=== PATIENT | female | born 1945 | race Caucasian/White ===

== ENCOUNTER 2022-03-01 14:12 | Outpatient (CLI) | payer MEDICARE, SELFPAY ==
--- OUTSIDE RECORDS SUMMARY | 2022-02-01 09:17 | XMS_ITS | Continuity of Care Document ---
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 She is hillary re of option for shingles shots and she will probably get that through a pharmac y. Will await labs and address abnormalities and she will add a little extra potassium in her diet with banana or oranges daily. Allergies, Adverse Reactions, Alerts Allergen Type Severity Reaction Last Updated Verified Status Latex Allergy Moderate Hives January 02, Yes Active 2021 NSAIDs Allergy Severe hives January 02, Yes Active 2021 Social History Smoking Status Status Start Date End Date Date of Observat ion Ex-smoker (finding) January 03 11:50am Observation Status Observation Response Date of Response History provided by Patient November 22, 2014 2:0 4pm Where do you live? Own home/apt November 22, 2014 2:0 4pm With whom do you live? 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 Hypertension March 27, 2010 Active Diverticulosis April 17, 2011 Active Hyperlipidemia April 28, 2012 Active Uterine fibroid April 28, 2012 Active Lung nodule Active Spondylolisthesis, lumbar region Active Hearing loss Active Occipital neuralgia of right side Active Ventral hernia Active fifth metatarsal shaft fracture, Active left S/P T&A (status post February 20, 2009 Resolved tonsillectomy and adenoidectomy) s/p Arm Fx ORIF February 20, 2009 Resolved S/P left knee arthroscopy February 20, 2009 Resolved S/P laparoscopy February 20, 2009 Resolved S/P total knee arthroplasty Active S/P right cataract extraction Active Medications Medication Status Dose Units Route Directions Qty Days Start End Ins tructions Date Date Acetaminophe Active 1000 MG PO Three Times n A Day (Acetaminoph en Extra Stren) 500 Mg TAB Atenolol Active 25 MG PO Twice A Day 180 January 02, 2022 10:19am Calcium/Jessica Active 1 EA PO Twice A Day min D Diazepam Active 2.5-5 MG PO Three Times 30 December A Day as , needed 2021 10:20am Flaxseed Active 1000 MG PO Daily (Linseed) (Flax Seed Oil) 1,000 Mg CAP Glucosamine- Active 1 EA PO Daily Chondroitin- Collag (Glucosamine Chondroitin/ C) CAP Hyaluronate Active Unknow XX Sodium n Dose (Bulk) (Sodium Hyaluronate) Unknown Strength POW Hydrochlorot Active 25 MG PO Twice A Day 180 December hiazide 2021 10:20am Metronidazol Active 1 DIANNE TOP Twice A Day 45 December e , (Metronidazo 2021 le Gel) 0.75 10:19am % GEL Milkthistle Active 2 CAP PO Daily Multiple Active 1 EA PO Daily Vitamin (Multi-Vitam in) TAB Prednisone Active 4 MG PO Daily 07 January 4 mg QD for 3D, then 3 mg QD for 3D, then 2 mg QD for 3D, , then 1 mg QD. Take with food 2021 10:10am Probiotic Active 1 PO Daily Product (Probiotic) TAB Timolol Active Unknow BOTH Twice A Day Maleate n Dose EYES (Ophth) Tramadol Hcl Active 50-100 MG PO Every 6 60 December MAX 400 (Ultram) 50 Hours as , MG/DA Y Mg TAB needed 2021 10:20am Valacyclovir Active 500 MG PO Daily 90 May Hcl 2021 10:19am Acetaminophe Disconti 500 MG PO Three Times Apri l n nued A Day 14, (Acetaminoph 2015 en Extra 1:45p Stren) 500 m Mg TAB Acetaminophe Disconti 1000 MG PO Three Times 100 Apri l NO MORE THAN n (Tylenol) nued A Day as , 4000 MG/DAY 325 Mg TAB needed 2014 1:44p m Acetaminophe Disconti 1 - 2 TABLET PO Q6h Prn December n W/ Codeine nued , , (Tylenol 2011 2012 With Codeine 11:27am 11:15 Tablet (#3)) am 1 Tablet TAB Acetaminophe Disconti 1 TABLET PO Every 6 November -1 tab n/Hydrocodon nued Hours , t Q6H PRN e Bitart 2009, (Vicodin) 5 3:31pm 2010 Mg/500 Mg 9:40a TAB m Amoxicillin Disconti 2000 MG PO Once August 1 H R PRIOR TO nued , er APPT 2015, 9:22am 2015 1:36p m Amoxicillin Disconti 2000 MG PO Once March 1 HR PRIOR TO nued , ry APPT 2014 11, 4:30pm 2015 9:22a m Amoxicillin Disconti 1 TABLET PO Tid X 7 Days October e & Pot nued , , Clavulanate 2019 2019 (Augmentin) 3:52pm 11:14 500 Mg/125 am Mg TAB Atenolol Disconti 25 MG PO Twice A Day February nued , 2020 11:55am 10:19 am Atenolol Disconti 25 MG PO Twice A Day Novembered , 2020 10:55am 11:55 am Atenolol Disconti 25 MG PO Twice A Day 180 November nued , 2020 1:29pm 10:55 am Atenolol Disconti 25 MG PO Twice A Day October nued , 2019 9:47am 1:29p m Atenolol Disconti 25 MG PO Twice A Day Octob nued er 2019 11:31 am Atenolol Disconti 25 MG PO Twice A Day 180 Februar October 11:27am 9:47a m Atenolol Disconti 25 MG PO Twice A Day 180 Februar Febru y 15, ricardo 2019 , 11:57am 2018 11:27 am Atenolol Disconti 25 MG PO Twice A Day 180 Februar Febru nued y , ricardo 2018 15, 10:57am 2018 11:57 am Atenolol Disconti 25 MG PO Twice A Day 180 August nued , er 2017 9, 10:59am 2016 3:30p m Atenolol Disconti 25 MG PO Twice A Day 180 August nued , ry 2016 10th, 9:22am 2016 10:59 am Atenolol Disconti 25 MG PO Twice A Day 180 Februaryed , ry 2014 4th, 9:04am 2015 9:22a m Atenolol Disconti 25 MG PO Twice A Day 180 February nued r , 2013 11:36am 9:04a m Atenolol Disconti 25 MG PO Twice A Day 180 Decembered , bia 2013, 8:43am 2013 11:36 am Atenolol Disconti 25 MG PO Twice A Day 180 August nued 2013 11:31am 8:43a m Atenolol Disconti 25 MG PO Twice A Day May, ry 2012, 12:54pm 2013 11:31 am Atenolol Disconti 25 MG PO Twice A Day 180 nued er er 2011 10:49am 12:54 pm Atenolol Disconti 25 MG PO Twice A Day 180 Januaryed , mber 2011, 12:05pm 2011 10:49 am Atenolol Disconti 25 MG PO Twice A Day 180 October nued 2011 2:54pm 12:05 pm Atenolol Disconti 25 MG PO Twice A Day October nued 2010 9:47am 2:54p m Atenolol Disconti 25 MG PO Twice A Day November nued 2009 1:46pm 9:47a m Bimatoprost Disconti 0.01 % OP Daily December (Lumigan) nued , 0.01 % VIVIANE 2016 2:36p m Brimonidine Disconti 1 DROP RIGHT Three Times 13 December Tartrate nued EYE A Day , (Alphagan P) 2016 0.1 % VIVIANE 2:36p m Brimonidine Disconti 0.1 % OP Augus Tartrate nued t (Alphagan P) , 0.1 % VIVIANE 2011 9:32a m Brinzolamide Disconti 1 DROP RIGHT Twice A Day Dece m (Azopt) 5 Ml nued EYE bia SUSP 2015 10:27 am Calcipotrien Disconti 0.005 % EX As Directed November u Apply e nued , ricardo topically to 2018 11, affected area 1:44pm 2019 2 night 3:08p every week. m Cephalexin Disconti 500 MG PO Four Times 40 August nued Daily , , 2020 2020 10:38am 9:29a m Cephalexin Disconti 500 MG PO Four Times January Augus (Keflex) 500 nued Daily , t Mg CAP 2015 01, 10:09am 2014 3:53p m Cetirizine Disconti 10 MG PO Daily as November Hcl nued needed 2014 8:27a m Ciprofloxaci Disconti 1 TABLET PO Twice Daily February ob n Hcl nued For 7 Days , er 2019, 12:31pm 2019 11:31 am Ciprofloxaci Disconti 250 MG PO Twice A Day 22 December Augu s n Hcl nued , 2017, 12:06pm 2017 12:54 pm Cyclobenzapr Disconti 10 MG PO Three Times 30 May Ma y ine Hcl nued A Day 2010 4:56pm 10:56 am Cyclobenzapr Disconti 1 TABLET PO Three Times 20 Novembe M arch PRN MUSCLE ine Hcl nued A Day r , SPASM (Flexeril) 2009 2010 10 Mg TAB 12:02pm 9:04a m Cyclosporine Disconti 1 DROP BOTH Twice A Day 60 Augu s (Restasis) nued EYES t 0.05 % EMU 2017 12:54 pm Diazepam Disconti 2.5-5 MG PO Three Times February nued A Day as , , needed 2020 2021 11:56am 10:19 am Diazepam Disconti 2.5-5 MG PO Three Times February nued A Day as r , , needed 2019 2020 1:24pm 11:55 am Diazepam Disconti 2.5-5 MG PO Three Times 30 March nued A Day as , needed 2019, 12:40pm 2019 1:24p m Diazepam Disconti 2.5-5 MG PO Three Times 07 November Augus nued A Day as , t needed 2019, 12:51pm 2019 12:40 pm Diazepam Disconti 2.5-5 MG PO Three Times May nued A Day as , , needed 2018 2019 9:49am 9:47a m Diazepam Disconti 2.5-5 MG PO Three Times February nued A Day as , er needed 2018, 11:02am 2018 9:49a m Diazepam Disconti 2.5-5 MG PO Three Times November nued A Day as , , needed 2018 2018 12:57pm 11:02 am Diazepam Disconti 2.5-5 MG PO Three Times March nued A Day as , , needed 2017 2018 1:08pm 12:57 pm Diazepam Disconti 2.5-5 MG PO Three Times 07 February Augus nued A Day as , t needed 2017, 1:28pm 2017 1:08p m Diazepam Disconti 2.5-5 MG PO Three Times January nued A Day as y , , needed 2017 2017 10:01am 1:28p m Diazepam Disconti 2.5-5 MG PO Three Times Marchu nued A Day as , ricardo needed 2016, 12:54pm 2017 10:01 am Diazepam Disconti 2.5-5 MG PO Three Times 30 November Augus nued A Day as , t needed 2016, 5:06pm 2016 12:54 pm Diazepam Disconti 2.5-5 MG PO Three Times 30 November nued A Day as r 15, , needed 2015 2016 4:28pm 5:06p m Diazepam Disconti 2.5-5 MG PO Three Times 30 February nued A Day as , bia needed 2015, 10:19am 2015 4:28p m Diazepam Disconti 2.5-5 MG PO Three Times 30 November nued A Day as , , needed 2015 2015 8:43am 10:19 am Diazepam Disconti 2.5-5 MG PO Three Times 30 October nued A Day as , , needed 2015 2015 4:51pm 8:32a m Diazepam Disconti 2.5-5 MG PO Three Times 30 October nued A Day as er , needed 2015 4:51p 11:32am m Diazepam Disconti 2.5-5 MG PO Three Times 30 January nued A Day as , mber needed 2014, 9:35am 2014 11:32 am Diazepam Disconti 2.5-5 MG PO Three Times 07 February nued A Day as , needed 2014 9:35a m Diazepam Disconti 2.5-5 MG PO Three Times 30 November nued A Day r , 2013 8:52am 1:44p m Diazepam Disconti 2.5-5 MG PO Three Times 30 February nued A Day 2013, 3:30pm 2013 8:52a m Diazepam Disconti 2.5-5 MG PO Three Times 30 November nued A Day 2013 2:05pm 3:30p m Diazepam Disconti 2.5-5 MG PO Three Times August nued A Day 2013 8:38am 2:05p m Diazepam Disconti 2.5-5 MG PO Three Times 30 nued A Day er ry , 2012 11:00am 8:38a m Diazepam Disconti 2.5-5 MG PO Three Times 30 January nued A Day , mber 2012 30, 11:06am 2012 11:00 am Diazepam Disconti 2.5-5 MG PO Three Times 30 October nued A Day 2012 12:07pm 11:06 am Diazepam Disconti 2.5-5 MG PO Three Times August nued A Day , 2012 10:14am 12:07 pm Diazepam Disconti 2.5-5 MG PO Three Times 30 Janua nued A Day er ry , 2011 10:48am 10:14 am Diazepam Disconti 2.5 - MG PO Three Times 30 December Sept nued 5 A Day 1st, mber 2011 18, 11:27am 2011 10:49 am Diazepam Disconti 2.5 - MG PO Three Times 30 Novem Janua nued 5 A Day r 18, ry 2010, 3:24pm 2011 3:24p m Diphtheria/T Disconti 0.5 ML IM Once October etanus/Acell nued , , Pertussis 2019 2019 (Adacel) 0.5 9:12am 9:59a Ml INJ m Diphtheria/T Disconti 0.5 ML IM Once February etanus/Acell nued , , Pertussis 2007 2007 (Adacel) 0.5 9:45am 9:58a Ml INJ m Dorzolamide/ Disconti 1 DROP RIGHT Twice A Day 10 Febr u Timolol nued EYE ricardo (Cosopt) 2 , %/0.5 % SOLN 2017 3:48p m Fexofenadine Disconti 180 MG PO Daily as Hcl nued needed ry 2013 2:42p m Fluconazole Disconti 150 MG PO Once 09 December Augus nued , t 2014 6th, 4:33pm 2014 3:53p m Fluorouracil Disconti 5 % EX One Day Per 09 October Apri l (Topical) nued Week , (Efudex) 5 % 2018 2018 CRE 1:18pm 1:44p m Gabapentin Disconti 100 MG PO Three Times 90 uar Michael h nued A Day y , , 2019 2019 3:37pm 8:42a m Gabapentin Disconti 300 MG PO Bedtime Novemberus (Neurontin) nued , t 300 Mg CAP 2014 6th, 12:34pm 2014 3:53p m Hydrochlorot Disconti 25 MG PO Twice A Day November hiazide nued , , 2021 2021 3:59pm 10:20 am Hydrochlorot Disconti 25 MG PO Daily November hiazide nued , 2021 1:58pm 3:59p m Hydrochlorot Disconti 25 MG PO Daily November hiazide nued , 2020 10:55am 1:58p m Hydrochlorot Disconti 25 MG PO Daily 90 October hiazide nued , 2019 9:47am 10:55 am Hydrochlorot Disconti 25 MG PO Daily 90 Februaoctober hiazide nued y , 2019 9:05am 9:47a m Hydrochlorot Disconti 25 MG PO Daily 90 Februa Febr hiazide nued ricardo 2018, 11:27am 2019 9:05a m Hydrochlorot Disconti 25 MG PO Daily 90 Decemberu hiazide nued , ricardo2017, 4:31pm 2018 11:27 am Hydrochlorot Disconti 25 MG PO Daily 90 uar December hiazide nued y 2017 8:15am 4:31p m Hydrochlorot Disconti 25 MG PO Daily January hiazide nued ricardo2016 16, 4:42pm 2017 4:29p m Hydrochlorot Disconti 25 MG PO Daily 90 January hiazide nued r 2015 11:53am 4:42p m Hydrochlorot Disconti 25 MG PO Daily August hiazide nued , bia 2015, 9:22am 2015 11:53 am Hydrochlorot Disconti 25 MG PO Daily May hiazide nued , ry 2014 4th, 11:33am 2015 9:22a m Hydrochlorot Disconti 25 MG PO Daily 09 June Novem hiazide nued , bia 2014 2nd, 10:50am 2014 9:19a m Hydrochlorot Disconti 25 MG PO Daily February hiazide nued , er 2014, 9:11am 2014 10:50 am Hydrochlorot Disconti 25 MG PO Daily 90 February hiazide nued r , , 2013 2014 10:37am 9:11a m Hydrochlorot Disconti 25 MG PO Daily 30 hiazide nued r , bia 2013, 9:55am 2013 10:37 am Hydrochlorot Disconti 25 MG PO Daily hiazide nued r , bia 2013, 9:43am 2013 8:41a m Hydrochlorot Disconti 25 MG PO Daily 09 June Decem hiazide nued , bia 2013 09, 12:02pm 2013 9:43a m Hydrochlorot Disconti 25 MG PO Daily March hiazide nued , er 2013, 10:58am 2013 12:02 pm Hydrochlorot Disconti 25 MG PO Daily December Augus hiazide nued , t 2013 12, 8:46am 2013 10:58 am Hydrochlorot Disconti 25 MG PO Daily August hiazide nued , , 2013 2013 11:27am 8:46a m Hydrochlorot Disconti 25 MG PO Daily hiazide nued r , ry 2012, 12:30pm 2013 11:27 am Hydrochlorot Disconti 25 MG PO Daily March hiazide nued , bia 2012, 11:03am 2012 12:30 pm Hydrochlorot Disconti 25 MG PO Daily Marus hiazide nued er t , 2011 10:48am 11:03 am Hydrochlorot Disconti 25 MG PO Daily hiazide nued er 7th, mber 2010, 9:59am 2011 10:48 am Hydroxyzine Disconti 25-50 MG PO Every November Augus Pamoate nued Hours as , (Vistaril) needed for 2015 01, 25 Mg CAP Analgesic 12:34pm 2015 Enhancement 3:53p m Influenza Disconti 0.5 ML IM Once 1 Novem Novem Virus Vacc nued r , bia Triv Types 2009 10, A&B (Fluarix 12:08pm 2009) 0.5 12:18 Ml INJ pm Latanoprost Disconti 1 DROP BOTH Bedtime November (Xalatan) 1 nued EYES , Drop DROP 2016 9:57a m Lidocaine/Al Disconti 15 - ML PO Tid-Qid November MAGIC MOUTHWASH 1:1:1 BENADRYL ELIX:VISC LIDOCAINE:MAALOX uminum/Magne nued , , USE SWISH EVERY 4 HOURS NEEDED (FOR CHILDREN GREATER THAN 6 sium/Simeth 2009 2009 MONTHS O F AGE) (Magic 12:55pm 1:20p Mouthwash) m 240 Ml SOLN Lisinopril Disconti 10 MG PO Daily November nued , 2009 12:52pm 1:20p m Loratadine Disconti 10 MG OR Janua (Claritin) nued ry 10 Mg CAP 2012 3:48p m Lorazepam Disconti 1 TABLET PO As Needed October MO N nued , mber 2012 01, 8:50am 2011 1:51p m Lorazepam Disconti 1 TABLET PO As Needed October PRN nued r , 2010 8:37am 8:50a m Lorazepam Disconti 1 TABLET PO As Needed PRN nued r , bia 2010, 8:48am 2010 8:37a m Lorazepam Disconti 1 TABLET PO As Needed May PRN nued , bia 2010, 8:35am 2010 8:48a m Lorazepam Disconti 1 TABLET PO As Needed January MO N nued , er 2010 12, 9:55am 2010 8:35a m Lorazepam Disconti 1 TABLET PO As Needed November MO N nued , 2010 3:31pm 9:55a m Lorazepam Disconti 1 TABLET PO As Needed October MO N nued , 2010 9:17am 3:31p m Lorazepam Disconti 1 TABLET PO As Needed October PRN nued r , 2009 12:02pm 9:17a m Lorazepam Disconti 1 TABLET PO As Needed January MO N nued , bia 2009 10, 11:16am 2009 12:02 pm Lorazepam Disconti 1 TABLET PO As Needed November MO N nued , 2009 1:46pm 11:16 am Lorazepam Disconti 1 TABLET PO As Needed October MO N nued , 2009 8:39am 1:46p m Lorazepam Disconti 1 TABLET PO As Needed May PRN nued , 2008 4:57pm 8:39a m Lorazepam Disconti 1 TABLET PO As Needed October MO N nued , er 2008, 10:38am 2008 4:57p m Lorazepam Disconti 1 TABLET PO As Needed February MO N nued , 2007 9:45am 10:38 am Lorazepam Disconti 1 TABLET PO As Needed December MO N nued 2007 3:19pm 9:45a m Lorazepam Disconti 1 TABLET PO As Needed 08 December MO N nued 2007 11:25 am Methylpredni Disconti 1 TAB PO As Directed [facility] DIRECTED solone nued r , ON PACKAGE (Medrol 2018 2019 Dosepak) 4 10:34am 8:42a Mg VAMSI m Methylpredni Disconti 1 TAB PO As Directed December DIRECTED solone nued , ON PACKAGE (Medrol 2013 2013 Dosepak) 4 3:14pm 4:12p Mg VAMSI m Methylpredni Disconti 1 TAB PO As Directed 31 August [facility] DIRECTED solone nued , ON PACKAGE (Medrol 2013 2013 Dosepak) 4 3:04pm 1:08p Mg VAMSI m Methylpredni Disconti 1 PACK PO Once October TAKE solone nued , , DIRECTED ON (Medrol 2012 2012 PACKAGE Dose-Vamsi) 4 12:02pm 12:53 Mg TAB pm Methylpredni Disconti 1 PACK PO Once March PIPO E solone nued 6th, mber DIRECTED ON (Medrol 2012 01, PACKAGE Dose-Vamsi) 4 9:53am 2012 Mg TAB 1:51p m Metoprolol Disconti 25 MG PO Daily May Succinate nued , ricardo (Metoprolol 2016, Succinate 3:17pm 2018 Er) 25 Mg 3:48p TABCR m Metronidazol Disconti 1 DIANNE TOP Twice A Day May Ma y azam nued , (Metronidazo 2020 2021 le Gel) 0.75 1:03pm 10:19 % GEL am Metronidazol Disconti 1 DIANNE TOP Twice A Day 45 November b e nued , er (Metronidazo 2020 11, le Gel) 0.75 10:55am 2020 % GEL 1:00p m Metronidazol Disconti 1 DIANNE TOP Twice A Day 45 Februar Ap ril e nued y , , (Metronidazo 2020 2020 le Gel) 0.75 8:01am 10:55 % GEL am Metronidazol Disconti 1 DIANNE TOP Twice A Day 45 August bru e nued , ricardo (Metronidazo 2020, le Gel) 0.75 12:49pm 2020 % GEL 8:01a m Metronidazol Disconti 1 DIANNE TOP Twice A Day 45 March ua e nued , ry (Metronidazo 2019, le Gel) 0.75 12:39pm 2020 % GEL 12:49 pm Metronidazol Disconti 1 DIANNE TOP Twice A Day 45 November s e nued , t (Metronidazo 2019, le Gel) 0.75 2:43pm 2019 % GEL 12:39 pm Metronidazol Disconti 1 DIANNE TOP Twice A Day 45 May Ap ril e nued , (Metronidazo 2018 2019 le Gel) 0.75 9:34am 2:43p % GEL m Metronidazol Disconti 1 DIANNE TOP Twice A Day 45 October b e nued , er (Metronidazo 2018, le Gel) 0.75 3:18pm 2018 % GEL 9:34a m Metronidazol Disconti 1 DIANNE TOP Twice A Day 45 Novembe Ma rch e nued r , 18, (Metronidazo 2017 2018 le Gel) 0.75 11:26am 3:18p % GEL m Metronidazol Disconti 1 DIANNE TOP Twice A Day 45 Septemb No vem e nued er , bia (Metronidazo 2017, le Gel) 0.75 3:19pm 2017 % GEL 11:26 am Metronidazol Disconti 1 DIANNE TOP Twice A Day 45 Februar Se pte e nued y , mber (Metronidazo 2017 12, le Gel) 0.75 10:01am 2018 % GEL 3:19p m Metronidazol Disconti 1 DIANNE TOP Twice A Day 45 January Febr u e nued 30, ricardo (Metronidazo 2016, le Gel) 0.75 2:04pm 2018 % GEL 10:01 am Metronidazol Disconti 1 % EX Daily 60 August e (Metrogel) nued , , 1 % GEL 2015 2016 9:22am 2:04p m Metronidazol Disconti 1 % EX Daily 60 Novembe Janua e (Metrogel) nued r , ry 1 % GEL 2014 11, 11:32am 2015 9:22a m Metronidazol Disconti 1 % EX Daily 60 Decembe Novem e (Metrogel) nued r , bia 1 % GEL 2013, 8:41am 2014 11:32 am Metronidazol Disconti 1 % EX Daily 60 August Decem e (Metrogel) nued , bia 1 % GEL 2013, 11:47am 2013 8:41a m Metronidazol Disconti 1 % EX Daily 60 Septemb Janua e (Metrogel) nued er ry 1 % GEL , 2011 10:49am 11:47 am Metronidazol Disconti 1 % EX Daily 60 December Septe e (Metrogel) nued , mber 1 % GEL 2011, 9:15am 2011 10:49 am Metronidazol Disconti 1 % EX Daily 60 October e (Metrogel) nued , 1 % GEL 2010 2011 9:47am 9:15a m Metronidazol Disconti 1 % EX Daily 60 Novembe October e (Metrogel) nued r , , 1 % GEL 2009 2010 9:37am 9:47a m Metronidazol Disconti 1 % EX Daily 45 Septemb Novem e (Metrogel) nued er , bia 1 % GEL 2008, 1:38pm 2009 9:37a m Metronidazol Disconti 1 % EX Daily 45 February Septe e (Metrogel) nued , mber 1 % GEL 2008 04, 9:45am 2008 1:38p m Metronidazol Disconti 1 % EX Daily February e (Metrogel) nued 28th, 1 % GEL 2007 9:45a m Mometasone Disconti 2 SPRAY EACH Daily August USE 2 SPRAYS Furoate nued NOSTR 4th, er IN EACH (Nasonex) 2015 17th, NOSTRIL [place] SPRAY 8:51am 2015 DAILY. 1:36p m Mometasone Disconti 2 SPRAY EACH Daily February USE 2 SPRAYS Furoate nued NOSTR 13th, ry IN EACH (Nasonex) 2014 4th, NOSTRIL [place] SPRAY 9:01am 2015 DAILY. 8:51a m Mometasone Disconti 2 SPRAY EACH Daily August USE 2 SPRAYS Furoate nued NOSTR 22nd, 13th, IN EACH (Nasonex) 2013 NOSTRIL [place] SPRAY 11:46am 9:01a DAILY. m Mometasone Disconti 2 SPRAY EACH Daily USE 2 SPRAYS Furoate nued NOSTR er ry IN EACH (Nasonex) 08 28, , NOSTRIL [place] SPRAY 2011 2013 DAILY. 10:48am 11:46 am Mometasone Disconti 2 SPRAY EACH Daily October USE 2 SPRAYS Furoate nued NOSTR 15th, mber IN EACH (Nasonex) 2011 18, NOSTRIL [place] SPRAY 9:25am 2011 DAILY. 10:48 am Mometasone Disconti 2 SPRAY EACH Daily October USE 2 SPRAYS Furoate nued NOSTR 8th, 15th, IN EACH (Nasonex) 2010 NOSTRIL [place] SPRAY 9:47am 9:25a DAILY. m Mometasone Disconti 2 SPRAY EACH Daily March USE 2 SPRAYS Furoate nued NOSTR 7th, 8th, IN EACH (Nasonex) 2008 NOSTRIL [place] SPRAY 4:40pm 9:47a DAILY. m Mometasone Disconti 2 SPRAY EACH Daily February USE 2 SPRAYS Furoate nued NOSTR 28th, t IN EACH (Nasonex) 2007 7th, NOSTRIL [place] SPRAY 9:45am 2008 DAILY. 4:40p m Mometasone Disconti 2 SPRAY EACH Daily 08 February USE 2 SPRAYS Furoate nued NOSTR , IN EACH (Nasonex) 2007 NOSTRIL [place] SPRAY 9:45a DAILY. m Mupirocin Disconti 1 DIANNE TOP Twice A Day Januaryus (Bactroban) nued as needed 4th, t 22 Gm OINT 2015 01, 1:54pm 2014 3:53p m Nitrofuranto Disconti 100 MG PO Twice A Day March ob in nued , er Macrocrystal 2021 07, (Nitrofurant 10:05am 2020 oin) 100 Mg 8:12a CAP m Nitrofuranto Disconti 100 MG PO Twice Daily 22 October Michael h in nued For 7 Days , , Monoh/Nitrof 2013 2013 ur Macro 1:54pm 2:52p (Macrobid) m 100 Mg CAP [place]-3 Disconti October Fatty Acids nued , (Fish Oil) 2013 CAP 2:52p m Oxycodone/Ac Disconti 1-2 TAB PO Every 4 November etaminophen nued Hours as , , needed for 2014 2014 Pain 12:34pm 1:26p m Phenazopyrid Disconti 100 MG PO Three Times December s ine Hcl nued A Day as , t (Pyridium) needed 2017, 100 Mg TAB 12:06pm 2017 12:54 pm Pneumococcal Disconti 0.5 ML IM Once November Polyvalent nued 7th, 7th, Vaccine 2014 2014 (Prevnar 13) 8:53am 9:16a 0.5 Ml INJ m Polymyxin/Tr Disconti 1 DROP AFE Every 3 October Q3 H X 6 imethoprim nued Hours 18th, 4th, DOSES/DAY Sulfate 2019 2019 (Polytrim) 3:52pm 11:14 VIVIANE am Pravastatin Disconti 20 MG PO Daily December Sodium nued er , 2012 4:10p 12:39pm m Pravastatin Disconti 20 MG PO Daily 30 Sodium nued er mber 2011 11:58am 5:55p m Prednisolone Disconti 1 DROP BOTH Twice A Day Febr u Acetate nued EYES ricardo (Prednisolon , e Acetate 2019 3:08p Suspension) m 1 % SARA Prednisone Disconti 20 MG PO Twice A Day 22 August Michael h Take 1 tab (20mg) two times a day for 4 days, then daily nued , , for 4 days 2019 2019 10:43am 8:42a m Prednisone Disconti 30 MG PO Daily 18 March Janua 30 mg QD for 3D, then 20 mg QD for 3D, then 10 mg QD. nued 14, ry Take with food . 2017, 1:08pm 2019 10:43 am Prednisone Disconti 30 MG PO Daily 18 uar Augus 30 m g QD for 3D, then 20 mg QD for 3D, then 10 mg QD. nued y , t Take with fo od. 2017, 10:00am 2017 1:08p m Prednisone Disconti 30 MG PO Daily Marchu 30 mg QD for 3D, then 20 mg QD for 3D, then 10 mg QD. nued 8th, ricardo Take with food . 2016, 3:49pm 2017 10:00 am Prednisone Disconti 30 MG PO Daily Augustob 30 m g daily nued 4th, er and wean as 2015, directed 8:51am 2015 1:36p m Prednisone Disconti 30 MG PO Daily 40 Decemb Janua 30 m g daily nued r 10th, ry for 3 days, 2014 03, then wean as 8:52am 2014 directed, 1:41p with food. m Prednisone Disconti 10-20 MG PO Daily December nued 16, , 2013 2013 3:32pm 4:12p m Prednisone Disconti 30 MG PO Daily 10.5 November Pt to take 30 nued 24, , mg daily with 2012 2012 food for 7 12:05pm 4:10p days. m Prednisone Disconti 30 MG PO Daily 40 Novem Janua 30 m g daily nued r 18th, ry for 2 days, 2010, then wean as 3:24pm 2011 directed. 3:24p Take with m food Prednisone Disconti 1 TAB PO Daily 5 Novemoctober Take with nued r 3rd, 8th, food. 2009 2010 12:02pm 9:04a m Prednisone Disconti 20 MG PO Daily October 2 tabs daily nued 30, , for 5 days, 2008 2008 then 1 tab 9:34am 12:57 daily, with pm food. Rivaroxaban Disconti 10 MG PO Daily November (Xarelto) 10 nued , , Mg TAB 2014 2014 12:34pm 4:14p m Sulfamethoxa Disconti 1 TAB PO Twice A Day March ob zole-Trimeth nued 14, er oprim 2021 07, (Bactrim Ds) 9:04am 2020 800 Mg/160 8:07a Mg TAB m Sulfamethoxa Disconti 1 TAB PO Twice A Day March us zole-Trimeth nued , t oprim 2020, (Bactrim Ds) 4:15pm 2020 800 Mg/160 9:04a Mg TAB m Sulfamethoxa Disconti 1 TAB PO Twice A Day Fe bru zole-Trimeth nued y , ricardo oprim 2018, (Bactrim Ds) 10:22am 2018 800 Mg/160 10:02 Mg TAB am Timolol Disconti 1 DROP RIGHT Daily Decem Maleate nued EYE bia (Ophth) , (Timoptic) 2015 0.5 % VIVIANE 10:27 am Tramadol Hcl Disconti 50-100 MG PO Every 6 August MAX 400 (Ultram) 50 nued Hours as , , MG/DA Y Mg TAB needed 2021 2021 11:17am 10:20 am Tramadol Hcl Disconti 50-100 MG PO Every 6 60 February M AX 400 (Ultram) 50 nued Hours as , ry MG/DA Y Mg TAB needed 2020 7th, 11:56am 2021 11:17 am Tramadol Hcl Disconti 50-100 MG PO Every 6 60 February MAX 400 (Ultram) 50 nued Hours as r , , MG/ DAY Mg TAB needed 2019 2020 8:30am 11:55 am Tramadol Hcl Disconti 50-100 MG PO Every 6 60 October Novem M AX 400 (Ultram) 50 nued Hours as 3rd, bia MG/DA Y Mg TAB needed 2019, 12:51pm 2019 8:30a m Tramadol Hcl Disconti 50-100 MG PO Every 6 60 May MAX 400 (Ultram) 50 nued Hours as 15th, 3rd, MG/DA Y Mg TAB needed 2018 2019 11:55am 9:47a m Tramadol Hcl Disconti 50-100 MG PO Every 6 60 March MAX 400 (Ultram) 50 nued Hours as 14th, er MG/DA Y Mg TAB needed 2017, 1:08pm 2018 11:55 am Tramadol Hcl Disconti 50-100 MG PO Every 6 60 Februar Augus MAX 400 (Ultram) 50 nued Hours as y , t MG/ DAY Mg TAB needed 2017, 10:01am 2017 1:08p m Tramadol Hcl Disconti 50-100 MG PO Every 6 60 Novembe Febru MAX 400 (Ultram) 50 nued Hours as r 18, ricardo MG/ DAY Mg TAB needed 2015, 5:14pm 2017 10:01 am Tramadol Hcl Disconti 50-100 MG PO Every 6 60 December Novem M AX 400 (Ultram) 50 nued Hours as , bia MG/DA Y Mg TAB needed 2014, 2:44pm 2015 5:14p m Tramadol Hcl Disconti 0 MG PO Every 4 60 November (Ultram) 50 nued Hours as 30, , Mg TAB needed 2014 2014 12:34pm 1:26p m Tramadol Hcl Disconti 50-100 MG PO Every 6 60 November nued Hours as 30, 28th, needed 2014 2014 2:27pm 1:26p m Tramadol Hcl Disconti 50-100 MG PO Every 6 42 Decembe November nued Hours as r , 30, needed 2013 2014 8:52am 10:26 am Tramadol Hcl Disconti Unknow PO As Needed as 30 Ja nua nued n Dose needed ry 2014 1:41p m Tramadol Hcl Disconti 50-100 MG PO Every 6 August nued Hours as , , needed 2013 2013 3:04pm 1:08p m Tramadol Hcl Disconti 50-100 MG PO Every 4-6 May ua MAX 400 (Ultram) 50 nued Hours 1st, ry MG/DAY Mg TAB 2012, 3:59pm 2013 3:04p m Tramadol Hcl Disconti 50-100 MG PO Every 6 50 Decembe nued Hours as r 12th, ry needed 2012, 2:30pm 2013 3:04p m Tramadol Hcl Disconti 50-100 MG PO Q6h Prn January Novem M AX 400 nued 6th, bia MG/DAY 2012, 4:02pm 2012 9:29a m Triamcinolon Disconti 2 SPRAY EACH Daily e Acetonide nued NOSTR ry (Nasacort , Allergy 2017 24HR) 55 8:30a Mcg/Act SPR m Valacyclovir Disconti 500 MG PO Daily May Hcl nued , , 2020 2021 8:29am 10:20 am Valacyclovir Disconti 500 MG PO Daily October Hcl nued , er 2020 07, 9:47am 2020 8:29a m Valacyclovir Disconti 500 MG PO Daily 90 October Hcl nued y , , 2018 2019 11:27am 9:47a m Valacyclovir Disconti 500 MG PO Daily 90 Novem Febru Hcl nued r , ricardo 2017, 8:30am 2018 11:27 am Valacyclovir Disconti 500 MG PO Daily August Hcl nued 4th, bia 2016 07, 8:49am 2017 8:30a m Valacyclovir Disconti 500 MG PO Daily 90 Decemb Hcl nued r , ry 2012 11, 5:05pm 2015 8:49a m Valacyclovir Disconti 500 MG PO Twice A Day 5 Novembe Ma y Hcl nued r , , (Valtrex) 2010 2011 500 Mg TAB 8:59am 10:56 am Valacyclovir Disconti 500 MG PO Twice A Day Decembere m Hcl nued , bia (Valtrex) 2009, 500 Mg TAB 1:13pm 2010 8:59a m Valacyclovir Disconti 500 MG PO Twice A Day October Hcl nued , , (Valtrex) 2008 2009 500 Mg TAB 11:16am 1:13p m Valacyclovir Disconti 500 MG PO Twice A Day h Hcl nued , (Valtrex) 2008 500 Mg TAB 11:16 am Valtrex Disconti October nued 2008 9:00a m Vitamin C Disconti Septe nued mbhiral 2011 1:51p m Vitamin E Disconti Daily Septazam sanders [facility] 2011 1:51p m Zostavax Disconti 0.5 ML SUBQ Once 11 March Nikkous sanders , 2008, 11:33am 2008 12:03 pm Immunizations Immunization Event Date Not Given Dose Director Occupational Lot Vac cine Reason Number Number Informatio n Statement (VIS) Deta il COVID-September [id number] COVID-19 October 13, a 2020 Herpes Zoster March 16, merck [id number] 2008 Influenza May 112007 Influenza June 12 Glaxosmithkline 2009 Influenza May 132013 Influenza June 142015 Influenza May 152018 Influenza May 162019 Influenza May 172020 Prevnar Adult November 15, WYETH [id number] 2014 Pneumovax Adult February 06, 2006 Tetanus/Dipther October 11, ia 2019 Tdap March 07, sanofi pasteur [id number] (adolescent/doretha 2007 lt) Tdap October 11, 2 SANOFI [id number] (adolescent/doretha 2019 lt) Relevant Diagnostic Tests and/or Laboratory Data Laboratory Results Test Date/Time Result Interpretation Reference Result Perfo [facility] Site Range Comment Sodium January 02, 132 138-146 [facility] [place] Level [address] 10:18am [place] [address] Potassium January 02, 3.7 3.5-4.9 [facility] [place] Level [address] 10:18am [place] [address] Chloride January 02, 93 98-109 [facility] [place] Level [address] 10:18am [place] [address] Ionized January 02, 1.20 1.11-1.33 [facility] [place] Calcium [address] 10:18am [place] [address] Total January 02, 29 20-32 [facility] [place] Carbon [address] Dioxide 10:18am [place] [address] Random January 02, 106 60-115 [facility] [place] Glucose [address] 10:18am [place] [address] Blood Urea January 02, 18 8-26 [facility] [place] Nitrogen [address] 10:18am [place] [address] Creatinine January 02, 0.6 0.6-1.3 Hydroxyurea [facility] [place] 2021 at >/= 0.[address] 10:18am mmol/[place] [address] increased results in creatinine.I t is recommended that a different testing method be used when a patient is taking hydroxyurea. Vital Signs Vital Reading Result Reference Range Collection Date/ Time Height 62.800 [in_i] January 02, 2022 9 :31am Height 159.5 cm January 02, 2022 9 :31am Weight 161 [lb_av] January 02, 2022 9 :31am Weight 73.269894 kg January 02, 2022 9 :31am Body Temperature 96.4 [degF] January 02, 2022 9:31am Body Temperature 35.78 Deena January 02, 2022 9:31am BP Systolic 168 mm[Hg] January 02, 2022 9 :31am BP Diastolic 76 mm[Hg] January 02, 2022 9 :31am Heart Rate 66 /min January 02, 2022 9 :31am Respiratory rate 16 /min January 02, 2022 9:31am Body surface area 1.76 m2 January 02, 2022 9:31am BMI (Body Mass Index) 28.7 kg/m2 January 02, 2022 9:31am Advance Directives Advance Directive Response Recorded Date/Time Does Pt have Health Care Yes August 21 12:39pm Directive? Has patient completed a Yes January 03, 2022 1 1:50am Health Care Directive? Insurance Providers Guarantor Sabrina Mayen Address [id number] [place] [id number] Contact Info. Home Phone: Payer Policy Id Coverage Id Subscriber's Subscriber Id Effective E xpiration Name Date Date Terry [id number] Faheem August 11, Medicare Ppo [id number] Sabrina Bettencourt 2019 [id number] Encounters Encounter Location(s) Arrival/Admit Date Discharge/Depart Date Provider(s) Registered [place] January 02, 2022 Kavon Winn [facility] 10:17am Registered Clinics January 02, 2022 Kavon Winn [facility] 9:30am MD Office Visit [facility] January 02, 2022 Leatha Winn 9:30am Recent Diagnosis Onset Date Hypertension Functional Status Observation Response Date Recorded Functional Status Independent December 08, 2014 12: 04pm Mental Status Observation Response Date Recorded Cognitive Status Alert November 22, 2014 1:5 8pm Oriented November 22, 2014 1:5 8pm Cognitive Status Alert December 08, 2014 12: 04pm Oriented December 08, 2014 12: 04pm Assessments 2. Hyperlipidemia with statin intolerance but she has a nicely elevated HDL cholesterol which is protective. We will decrease frequency of testing for cholesterol levels in the future. 3. Occipital neuralgia which has improved with the prednisone recently. This is an intermittent problem. She is weaning off the prednisone and I recommended little slower wean and will change to 1 mg tablets. She can use 4 mg daily for 3 days, 3 mg for 3 days, 2 mg for 3 days, then 1 mg for 3 days and stop. I did caution her that decreasing the prednisone does lead to feeling of weakness, but that should improve over the next few weeks.4. Mild right trochanteric bursitis. She can hot pack this twice a day. 5. Mild pain at the ischial tuberosity on the right side. I recommended a 1 in foam pad for sitting on hard surfaces or she can use a thin pillow for this. She already has started doing that and she may need to just do that in the future. She is intolerant for nonsteroidals with a history of severe hives, so that is not an option. The current steroid treatments should be treating the inflammation but she could use ice or heat is desired also.6. Hearing loss and she is using hearing aids. 7. Glaucoma being treated with drops for this. 8. Seasonal allergies and she does have antihistamines for this if needed.9. Chronic low back pain with known spondylolisthesis. She is trying to stretch and do some walking and swimming for this.10. Right shoulder arthritis and patient uses Tylenol for this. She is trying to avoid proceeding to surgery for this. 11. Rosacea and she has metronidazole gel for this. 12. 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 Plan of Treatment Instructions from visit on: 01/02/22 Please follow the provider's instructions as discussed during your visit. Future Tests Future scheduled test information is unavailable Pending Tests Pending diagnostic test information is unavailable Future Visits Future appointment information is unavailable Referrals to Other Providers Reason for Referral Start Provider Provider Contact Provider Address Referral Date Information Patient scheduled NABILA TAMAYO for 1:00 on 12/27/2013 at [facility] in [facility] with Nabila Tamayo. Patient scheduled NABILA TAMAYO for 1:00 on 12/27/2013 at [facility] in [facility] with Nabila Tamayo. Future Procedures Procedure Name Scheduled Date MALIK Bilat Mammo Scrn Future Medications Future medication information is unavailable Patient Instructions Attached Discharge Info Oxycodone/Acetaminophen (By mouth) Tramadol (By mouth) Knee Replacement (DC) Goals Ambulatory Goals Reach or maintain optimal well being.
--- NOTE | 2022-03-01 14:40 | MM_ITS ---
Patient: NATHANAEL PARKER Facility:?[facility] Patient ID:?[id number] Site Patient ID:?[id number]. Site :?[id number] Study:?XRay-Breast Bilateral 3D W/CAD-03/01/2022 2:58:47 PM Ordering Physician:Milo Lomeli Final Report: BILATERAL MAMMOGRAM WITH COMPUTER-AIDED DETECTION AND TOMOSYNTHESIS TECHNIQUE: CC and MLO views were obtained. These mammographic images have been obtained using full-field digital technique. These mammographic images were interpreted with the benefit of computer-aided detection. Breast Tomosynthesis was used in this interpretation. COMPARISON FILM: 01/15/21, 01/11/20, 10/27/18. FINDINGS: There are scattered areas of fibroglandular density IMPRESSION: There is no radiographic evidence for malignancy. ASSESSMENT: BI-RADS Category 1: Negative RECOMMENDATION: Routine screening mammogram in 1 year. A lay language report of this examination will be provided to the patient. Caesar Hylton M.D. Diagnostic/Musculoskeletal Radiologist [email or web address] JOSEPHINE/candis / be/Dictated by: Caesar Hylton MD @ 03/04/2022 8:47:00 AM Signed by:?Caesar Hylton MD @03/05/2022 8:01:41 AM (Electronic Signature)
== END 2022-03-01 14:13 | disposition home or self-care (01) ==
LOC: MAMMO 14:17
PROVIDERS: PCP Family Medicine; Visit Provider Family Medicine
DX: Z12.31 Encounter for screening mammogram for malignant neoplasm of breast (principal)
CPT/HCPCS: 77063; 77067

== ENCOUNTER 2022-05-25 11:33 | Outpatient (CLI) | payer MEDICARE, SELFPAY | END 2022-05-25 11:34 | disposition home or self-care (01) | LOC: LKVREF 05-31 10:05 | PROVIDERS: PCP Family Medicine; Visit Provider Physician Assistant | DX: R30.9 Painful micturition, unspecified (principal); N39.0 Urinary tract infection, site not specified | CPT/HCPCS: 87086 ==

== ENCOUNTER 2023-01-23 10:15 | Outpatient (RCR) | payer MEDICARE, SELFPAY ==
--- NOTE | 2022-09-13 16:16 | PT.OPEX ---
PT [place] Outpatient Eval PT [facility] Outpatient Eval Start: 09/13/22 14:21 Freq: Status: Active Protocol: Document 09/13/22 14:31 AUDREY (Rec: 09/13/22 16:06 AUDREY [id number]) E-signed By Fern Brunson PT Physical Therapy Outpatient Evaluation Insurance Information Insurance Name Medicare B,Blue Cross/Blue Shield Insurance Information/Comments BCBS/MCARE Medical Diagnosis M54.50 LOW BACK PAIN M79.18 GLUTEAL PAIN Treating Diagnosis LUMBAR PAIN L HIP/GLUTEAL PAIN GAIT ABDNORMALITY UNSTEADY GAIT WEAKNESS Subjective Subjective PATIENT REPORTS, I WAS HELPING MY GRANDCHILDREN FROM [place] WITH THEIR SNOW GEAR ON (INVOLVING SIGNIFICANT AMOUNT OF BENDING, STOOPING, AND PULLING) ALONG WITH (AMB) UP/ DOWN HILL WITH IMMEDIATE PAIN THAT EVENING. SHE REPORTS ISSUES IN THE PAST BUT WAS ABLE TO QUICKLY RESOLVE THE SYMPTOMS. SHE REPORTS NEW SYMPTOMS COMPARED TO THE PAST THAT SHE NO LONGER CAN SIT TO RELIEVE THE SYMPTOMS WITH A TOLERANCE OF 2-3 MIN BEFORE SHE MUST GET UP. SECONDLY, SHE NOW HAS NERVE PAIN WHICH HAS NEVER HAPPEN BEFORE. 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 [employer] Preferred Name [employer] Precautions Therapy Limitations/Systems Review Not Limited Objective Other/Pertinent Objective Posture Assessment: RIGHT HIP HIKE, LEFT LUMBAR CURAVATURE (SCOLIOSIS), RIGID UPRIGHT POSTURING DURING STDG LUMBAR ROM Flexion: LIMITED AND PAINFUL repeated flexion: UNABLE TO TEST Extension: WFL'S repeated ext : PAINFUL WITH 4 Right Sidebend: LIMITED AND PAINFUL Left Sidebend: LIMITED AND PAINFUL LE MMT Hip flexion: R /5 L 4-/5 Hip Extension: L 3+ /5 Hip abduction:L 3+/5 knee extension: L 4/5 Knee Flexion: L 4/5 JOINT MOBILITY/PALPATION LEFT LUMBAR PARASPINAL AND LEFT POSTERIOR PELVIC GIRDLE MM SPASMS/PAINFUL LEFT L2-5 FACET HYPOMOBILITY AND PAINFUL SPECIAL TESTS Straight leg raise: PAINFUL Crossed straight leg raise: NT Slump test: NT Quadrant test: NT SI/HIPI tests HOLLIS (+) B FADIR NT SCOUR NT Gillet Test: NT Standing forward bend Test: (+ ) Gapping and Compression test: (+) TX: -PRONE LYING X 15MIN -MYOFACIAL RELEASE AND DEEP TISSUE MASSAGE TO LUMBAR FASCIA, LUMBAR PARASPINALS, QUADRATUS LUMBORUM, POSTERIOR PELVIC GIRDLE -P>A MOBS TO LEFT L2-L5 GRADE 1-2 GAIT TRAINING Functional Test Performed & Score TINETTI 07/08 TUG 26.4 5 STS ->UNABLE D/T PAIN SLS--> 2SEC RIGHT, 0 LEFT Assessment Assessment/Impression PATIENT IS A [address] MAIKEL MADDEN REFERRED TO PHYSICAL THERAPY FOLLOWING AN ACUTE BOUT OF BACK AND HIP/ GLUTEAL PAIN. 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 PATIENT LIVES WITH HER SPOUSE IN A 2 SE WITH AN ENTRACE W/O STEPS TO ENTER HOME REQUIRING CGA/MIN A D/T RECENT PAIN. SHE C/O 7-03/20 TODAY ABOUT THE LEFT FLANK AND GLUTEALS THAT INCREASED WITH SITTING, STANDING, AND IMPROVES WITH WALKING. PATIENT 'S PLOF CONSISTED OF WALKING FOR EXERCISE, INDEPENDENT WITH ADL'S, IADL'S, DRIVING, AND PARTICIPATION IN FAMILY CENTERED ACTIVITIES IN THE COMMUNITY. SHE NOW REQUIRES SBA/CGA FOR AMB D/T PAIN AND UNSTEADINESS, MIN A MOVING FROM SIT<>SUPINE D/T PAIN, MIN A WITH STAIRS BUT HAS HAD ISSUES WITH STEPS PREVIOUSLY. SHE USES A SPC OUTSIDE THE HOME BUT NOTHING FOR HOUSEHOLD DISTANCES. TODAY, SHE DEMONSTRATES TRENDELENBUR[place] / ANTALGIC GAIT WITH DECREASED STRIDE LEFT>RIGHT, DECREASED FOOT CLEARANCE L>R . SHE SHE IS UNABLE TO SIT >3 MIN BEFORE SHIFTING IN HER SEAT AND THEN NEEDING TO STAND D/T PAIN. SHE DEMONSTRATES A MODERATE RISK FOR FALLS EVIDENCED BY A SCORE OF 11/28 ON THE TINETTI BALANCE AND MOBILITY EXAM, 26.2 SEC ON THE TUG WITH UNSTEADINESS NOTED DURING CHANGE IN DIRECTION AND ANTALGIC GAIT, AND UNABLE TO PERFORM THE SIT TO STAND TEST D/T PAIN >WEAKNESS. SHE IS UNABLE TO LIE SUPINE COMFORTABLEY ON THE TREATMENT TABLE FOR >2-3 MIN AND UNABLE TO TOLERATE SPECIAL TEST TO THE HIPS. WE DEFAULTED TO PRONE POSITION WITH ONE PILLOW UNDER PELVIS NOTING SIGNIFICANT RELIEF IN HER SYMPTOM SEVERITY WELL THOSE REPORTED IN LEFT GLUTEAL . SHE IS POINT TENDER TO PALPATION ABOUT THE LEFT LUMBAR PARASPINALS FROM T10 TO THE SACRUM; HYPOMOBILITY NOTED L2-5 LEFT FACET, AND PALPABLE MM SPASM ABOUT THE LEFT PARASPINALS AND POSTERIOR PELVIC GIRDLE. THE FOCUS TODAY WAS ON SYMPTOM MGMT USING DEEP TISSUE MASSAGE AND MYOFASCIAL RELEASE TO LOOSEN THE RESTRICTED MVMT, THAT WILL INDIRECTLY LEAD TO PAIN MGMT. ADDITIONALLY, I PROVIDED PA MOBILIZATION TO THE HYPOMOBILE FACETS L2-L5 (LEFT) TO IMPROVE TRUNK MOBILITY AND WITH REDUCED PAIN. SHE WOULD BENEFIT FROM SKILLED PHYSICAL THERAPY TO ADDRESS THE AFOREMENTIONED ISSUES , PROVIDED CORE / BLE FUNCTIONAL STRENGTHENING AND BALANCE TRAINING, GT, AND SYMPTOM MGMT . HER PATIENT CENTERED GOAL IS TO BE ABLE TO SIT LONG ENOUGH TO FLY TO OUR CONDO ON GALT; PATIENT PROVIDED AN INITIAL HEP CONSISTING OF FREQUENT BOUTS OF AMB 10-15 MIN AT AT TIME, FREQUENT BOUTS OF PRONE LYING, AND ICE POST ACTIVITY. NEXT VISIT, REASSESS AND CONTINUE WITH TODAY'S MANUAL THERAPY, ADD LUMBAR/HIP STETCHES, BEGIN CORE STRENGTHENING, GT, AND BALANCE TRAINING (TO TOLERANCE) PATIENT VERBALIZED UNDERSTANDING TO ALL SKILLED INSTRUCTION AND AGREEABLE TO POC AND FREQ. Primary Functional Limitations GAIT ABNORMALITIES TRANSFERS STAIRS PAIN UNSTEADINESS FALL RISK Plan of Care Rehabilitation Potential Good Rehabilitation Potential Comments PATIENT IS EAGER TO IMPROVE SO THAT SHE CAN RETURN TO HER ACTIVE LIFE AND TRAVEL PLANS Physical Therapy Goals STG 1. PATIENT WILL BE ABLE TO SIT FOR 10 MIN WITH PAIN RATING OF <4/10 IN 4 WEEKS 2. PATIENT WILL BE INDEPENDENT WITH BED MOBILITY AND MOVING FROM SIT<>SUPINE WITH PAIN <4/ 10 IN 4 WEEKS 3. PATIENT WILL IMPROVE FROM 0 TO 3 STS IN 30 SEC IN 4 WEEKS LT. PATIENT WILL BE INDEPENDENT AND COMPLIANT WITH HER HEP IN 8 WEEKS 2. PATIENT WILL TOLERATE SITTING FOR >30 MIN WITH PAIN RATING <3/10 IN 8 WEEKS 3. PATIENT WILL IMPROVE FROM 26.4 SEC ON THE TUG TO 15 SEC IN 8 WEEKS 3. PATIENT WILL IMPROVE FROM 07/08 TO ON THE TINETTI BALANCE AND MOBILITY TEST Coordination/Communication With Referral Source Treatment Plan/Direct Interventions Gait Training,Heat,Ice/Cold/ Vasopneumatic,Joint Mobilization,Manual Therapy, Neuromuscular Re-ed, Therapeutic Activities, Therapeutic Exercises Frequency/Duration 2X/WK FOR 8 WEEKS Patient Will Be Discharged From Therapy Completion of LTG(s), Independent w/HEP Discharge Plan Comments PATIENT WILL BE DISCHARGED TO SELF WHEN GOALS REACHED Evaluation Billing Untimed Code Treatment Minutes 30 PT Eval No Charge No Complexity Moderate Certification Information Initial Certification Date 09/13/22 Ending Certification Date 12/06/22 Provider Signature Shows Agreement With POC & Medical Necessity Physician Signature & Date Requested Please Sign/Date Here Physician Comment/Change : Physician NPI Number #
--- NOTE | 2022-12-23 13:53 | PT.OPDNX ---
PT [place] [facility] Daily Note [facility] Daily Note Start: 09/13/22 14:21 Freq: Status: Active Protocol: Document 12/23/22 11:24 AUDREY (Rec: 12/23/22 13:52 AUDREY Laptop) E-signed By Fern Brunson, PT PT OP Daily Progress Note Visit Information Note Type Re-Evaluation Visit Number 6 Insurance Information Insurance Name Medicare B,Blue Cross/Blue Shield Insurance Information/Comments BCBS/MCARE Medical Diagnosis M54.50 LOW BACK PAIN M79.18 GLUTEAL PAIN Treating Diagnosis LUMBAR PAIN HIP PAIN GAIT ABNORMALITY UNSTEADY GAIT WEAKNESS Subjective Subjective PATIENT RETURNS TODAY AFTER 3MO ON HER OWN WITH EXACERBATED RIGHT HIP AND BACK PAIN. IT'S THE BLEACHERS THAT DID IT. Pain Comments 1-2/10 PAIN TO LEFT LUMBAR/ SACRAL/GLUT REGION AT REST AND 2-3/10 WITH AMB >30 MIN Preferred Name [employer] Home Exercise Home Exercise Comments -PATIENT INSTRUCTED TO AMB 15 MIN 2-3 X /DAILY RATHER THAN LONGER DURATION FOR LESS BOUTS Objective Other/Pertinent Objective Posture Assessment: REEVAL LEFT HIP HIKE, LEFT LUMBAR CURAVATURE (SCOLIOSIS), RIGID UPRIGHT POSTURING DURING STDG LUMBAR ROM Flexion: LIMITED AND PAINFUL repeated flexion: PAINFUL Extension: WFL'S repeated ext : PAINFUL Right Sidebend: LIMITED AND PAINFUL Left Sidebend: LIMITED AND PAINFUL LE MMT Hip flexion: R/ L 4-/5 Hip Extension: R/L 4-/5 Hip abduction: R/L 4-/5 knee extension: R/L 4+/5 Knee Flexion: R/L 4+/5 JOINT MOBILITY/PALPATION LEFT LUMBAR PARASPINAL AND LEFT POSTERIOR PELVIC GIRDLE MM SPASMS LEFT L2-5 FACET HYPOMOBILITY AND TENDER SPECIAL TESTS Straight leg raise: UNREMARKABLE Crossed straight leg raise: UNREMARKABLE. Slump test: UNREMARKABLE SI/HIPI tests HOLLIS (+) B Standing forward bend Test: (+ ) Gapping and Compression test: (+) Functional Test Performed & Score TINETTI Patient Instructed in Risks/Benefits Yes Therapeutic Activity Therapeutic Activity Minutes (minutes) 35 Therapeutic Activities Comments RECOMBENT BIKE 5MIN SUPINE HOOKLYING ABD BRACING X 1MIN HOLD 3 SEC SUPINE HOOKLYING ABD BRACING WITH BRIDGE X 1MIN SUPINE HOOKLYING ABD BRACING WITH ADD SQUEEZE X 1MIN SUPINE HOOKLYING ABD BRACING WITH ADD SQUEEZE AND BRIDGE X 10 STDG BLE: BILATERAL HEEL RAISE X 10 HIP ABD R/L X 10 KNEE FLEX R/L X 10 HIP EXT R/L X 10 MARCHING X 10 SIDE STEP WITH ABD BRACING 30FT X 4 TANDEM WALK 30FT X 2 FWD AND BKWD SEATED BLE: HR/TR X 1MIN KNEE EXT R/L 1MIN EA 3 SEC HOLD MARCHING 1MIN STS 2 X 5 WITH EMPHASIS ON POSTERIOR CHAIN Treatment Minutes Untimed Code Treatment Minutes 15 Timed Code Treatment Minutes 35 Total Treatment Time 50 Billing Units Therapeutic Exercise Units 2 Re-Evaluation Units 1 Assessment/Impression Assessment/Impression PATIENT RETURNS TODAY WITH CONTINUED REPORTS OF SLEEPING BETTER W/O EPISODES OF SIGNIFICANT DISCOMFORT WHEN ROLLING OVER OR MOVING FROM SIT<>SUPINE. WE PERFORMED AND REVIEWED HER STDG BLE STRENGTHENING AND HOW THEY TRANSFERED TO THE POOL. PERFORMED A F/U TUG SCORING 17 .2 SEC COMPARED TO 26.4 SEC AND 5 STS FROM UNABLE TO 32 SEC. PERFORMED HER SEATED BLE STRENGTHENING WITH EMPHASIS ON QUALITY RATHER THAN SPEED AND TO MINDFUL WHAT HER BODY WAS SAYING WHEN PERFORMING THE SEATED EXERCISES. SHE IS INSTRUCTED NOT TOO PERFORM THESE EXERCISES IF SHE IS NOT TOLERATING SITTING FOR >5MIN. SHE CONFIRMED THAT SHE WOULD BE LEAVING FOR 5 WEEKS AND WOULD F/U UPON RETURN TO [facility] TO WHETHER SHE SHOULD NEED TO CONTINUE PHYSICAL THERAPY. WE REVIEWED HOW SHE SHOULD FREQUENTLY CHANGE POSITION, ROCK PELVIS, SHIFT SIDE TO SIDE OR STAND IF SHE IS ABLE TO TOLERATE THE >4 HOUR FLIGHT. PATIENT VERBALIZED UNDERSTANDING TO ALL SKILLED INSTRUCTION AND WILL CONTACT ME SHOULD SHE HAVE ANY QUESTIONS OR CONCERNS . Plan of Care Physical Therapy Goals 1. PATIENT WILL TOLERATE SITTING FOR >30 MIN WITH A REPORT OF <3/10 PAIN IN 6-8 WEEKS 2. PATIENT WILL TOLERATE AMB FOR >30 MIN FOR COMMUNITY / PEER ACTIVITY PARTICIPATION IN 6-8 WEEKS 3. PATIENT WILL IMPROVE HER BALANCE FROM 1828 TO 24/28 ON THE TINETTI IN 6-8 WEEKS. 4. PATIENT WILL BE INDEPENDENT WITH HER HEP IN 6-98 WEEKS. Recertification Information Initial Certification Date 09/13/22 Recertification Start Date 12/23/22 Recertification Due Date 03/17/23 Reasons to Continue Skilled Therapy PATIENT IS A [address] MAIKEL MADDEN ORIGINALLY REFERRED BACK FEB TO PHYSICAL THERAPY FOLLOWING AN ACUTE BOUT OF BACK AND HIP/GLUTEAL PAIN. 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 PATIENT LIVES WITH HER SPOUSE IN A 2 STORY HOME WITH AN ENTRANCE W/ O STEPS TO ENTER HOME. SHE RETURNS FROM AN EXTENDED STAY IN [place] WHERE SHE CONTINUED WITH HER HOME PROGRAM PRESCRIBED PRIOR TO HER DEPARTURE AND REPORTS GREAT MGMT OF HER SYMPTOMS DURING THAT TIME. SHE HAS BEEN RECENTLY TO HER [employer]SON[employer] GAMES WHERE SHE SAT IN THE [employer] FOR PROLONGED PERIODS OF TIME WHICH EXACERBATED HER RIGHT HIP PAIN WELL HER BACK PAIN. SHE NOW RETURNS WITH AN UPDATED REFERRAL TO ADDRESS THIS BACK AND HIP PAIN. TODAY SHE REPORTS A RANGE BETWEEN 3-6/10 PAIN AND DIFFICULTY WITH PROLONGED SITTING >10MIN OR PROLONGED AMB >5-10 MIN W/O MODERATE INCREASE IN HIP AND BACK PAIN WELL INCREASING ROTATION. TODAY WE REVIEWED HER CORE STRENGTHENING PROGRAM WELL HER STDG BLE STRENGTHENING PROGRAM WITH FOCUS ON SUSTAINED MUSCLE CONTRACTION OF HER TRANSVERSE ABDOMINIS AND LATERAL HIP. SHE IS APPROPRIATE FOR CONTINUED SKILLED PHYSICAL THERAPY TO ADDRESS THIS RECENT EXACERBATION WELL BLE/ CORE STRENGTHENING, GT, AND BALANCE TRAINING. PATIENT VERBALIZED UNDERSTANDING TO ALL SKILLED INSTRUCTION AND AGREEABLE TO POC AND FREQ. Rehabilitation Potential GOOD Continued Plan of Care and Interventions BLE/CORE STRENGTHENING GT ON A VARIETY OF SURFACES BALANCE TRAINING ENDURANCE TRAINING Provider Signature Shows Agreement With POC & Medical Necessity
--- NOTE | 2023-01-23 15:19 | PT.OPDNX ---
PT [place] [facility] DISCHARGE SUMMARY PT [facility] Outpatient Daily Note Start: 09/13/22 14:21 Freq: Status: Active Protocol: Document 01/23/23 10:29 AUDREY (Rec: 01/23/23 15:19 AUDREY [id number]) E-signed By Fern Brunson, PT PT OP Daily Progress Note Visit Information Note Type Discharge Note Visit Number 10 Insurance Information Insurance Name Medicare B,Blue Cross/Blue Shield Insurance Information/Comments BCBS/MCARE Medical Diagnosis M54.50 LOW BACK PAIN M79.18 GLUTEAL PAIN Treating Diagnosis LUMBAR PAIN L HIP/GLUTEAL PAIN GAIT ABNORMALITY UNSTEADY GAIT WEAKNESS Subjective Pain Comments 1-2/10 PAIN TO LEFT LUMBAR/ SACRAL/GLUT REGION AT REST AND 2-3/10 WITH AMB >30 MIN Preferred Name [facility] Home Exercise Home Exercise Comments -PATIENT INSTRUCTED TO AMB 15 MIN 2-3 X /DAILY RATHER THAN LONGER DURATION FOR LESS BOUTS 01/17/23: PATIENT REMINDED TO AMB 15-20 MIN DAILY ALONG WITH HER HEP. Objective Other/Pertinent Objective Posture Assessment: REEVAL LEFT HIP HIKE, LEFT LUMBAR CURVATURE (SCOLIOSIS), RIGID UPRIGHT POSTURING DURING STDG LUMBAR ROM Flexion: LIMITED AND PAINFUL repeated flexion: PAINFUL Extension: WFL'S repeated ext : PAINFUL Right Sidebend: LIMITED AND PAINFUL Left Sidebend: LIMITED AND PAINFUL LE MMT Hip flexion: R/ L 4-/5 Hip Extension: R/L 4-/5 Hip abduction: R/L 4-/5 knee extension: R/L 4+/5 Knee Flexion: R/L 4+/5 JOINT MOBILITY/PALPATION LEFT LUMBAR PARASPINAL AND LEFT POSTERIOR PELVIC GIRDLE MM SPASMS LEFT L2-5 FACET HYPOMOBILITY AND TENDER SPECIAL TESTS Straight leg raise: UNREMARKABLE Crossed straight leg raise: UNREMARKABLE. Slump test: UNREMARKABLE SI/HIPI tests HOLLIS (+) B Standing forward bend Test: (+ ) Gapping and Compression test: (+) Functional Test Performed & Score TINETTI Patient Instructed in Risks/Benefits Yes Therapeutic Activity Therapeutic Activity Minutes (minutes) 45 Therapeutic Activities Comments RECUMBENT BIKE 5MIN SUPINE HOOKLYING TRUNK ROTATION 3 X 10SEC R/L SUPINE DKTC 3 X 15 SEC SUPINE HOOKLYING ABD BRACING X 1MIN HOLD 3 SEC SUPINE HOOKLYING ABD BRACING WITH BRIDGE X 1MIN SUPINE HOOKLYING ABD BRACING WITH ADD SQUEEZE AND BRIDGE X 10 STDG TB (GREEN) ROW X 15 STDG TB (GREEN) S'EXT X 15 STDG HIP ABD 1.5 P R/L X 15 STDG HIP EXT 1.5P R/L X 15 Treatment Minutes Timed Code Treatment Minutes 45 Total Treatment Time 45 Billing Units Therapeutic Exercise Units 3 Assessment/Impression Assessment/Impression PATIENT OG TX GREAT TODAY. SHE IS ABLE TO PERFORM EA OF HER EXERCISES TODAY WITH MIN DIRECTION AND WITH GOOD QUALITY. SHE NEEDS REMINDERS TO SLOW HER PACE AND STAND UPRIGHT BUT OTHERWISE PERFORMS WELL. WE DISCUSSED THE NEED TO WORK CADENCE 15-20 MIN AMB EA DAY TO MAINTAIN HER FUNCTIONAL ENDURANCE TO MEET THE ACTIVITY LEVEL SHE IS PARTICIPATING IN DAILY. WE DISCUSSED DISCHARGE FOR NEXT VISIT PLANNED WITH PATIENT VERBALIZING UNDERSTANDING IN AND IN AGREEMENT. Plan of Care Physical Therapy Goals 1. PATIENT WILL TOLERATE SITTING FOR >30 MIN WITH A REPORT OF <3/10 PAIN IN 6-8 WEEKS; GOAL MET 01/17/23 2. PATIENT WILL TOLERATE AMB FOR >30 MIN FOR COMMUNITY / PEER ACTIVITY PARTICIPATION IN 6-8 WEEKS; GOAL MET 01/17/23 3. PATIENT WILL IMPROVE HER BALANCE FROM TO ON THE TINETTI IN 6-8 WEEKS. 4. PATIENT WILL BE INDEPENDENT WITH HER HEP IN 6-8 WEEKS. Recertification Information Initial Certification Date 09/13/22 Recertification Start Date 12/23/22 Recertification Due Date 03/17/23 Reasons to Continue Skilled Therapy PATIENT IS A [address] MAIKEL MADDEN ORIGINALLY REFERRED BACK FEB TO PHYSICAL THERAPY FOLLOWING AN ACUTE BOUT OF BACK AND HIP/GLUTEAL PAIN. 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 PATIENT LIVES WITH HER SPOUSE IN A 2 STORY HOME WITH AN ENTRANCE W/ O STEPS TO ENTER HOME. SHE RETURNS FROM AN EXTENDED STAY IN [place] WHERE SHE CONTINUED WITH HER HOME PROGRAM PRESCRIBED PRIOR TO HER DEPARTURE AND REPORTS GREAT MGMT OF HER SYMPTOMS DURING THAT TIME. 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 SHE NOW RETURNS WITH AN UPDATED REFERRAL TO ADDRESS THIS BACK AND HIP PAIN. TODAY SHE REPORTS A RANGE BETWEEN 3-6/10 PAIN AND DIFFICULTY WITH PROLONGED SITTING >10MIN OR PROLONGED AMB >5-10 MIN W/O MODERATE INCREASE IN HIP AND BACK PAIN WELL INCREASING ROTATION. TODAY WE REVIEWED HER CORE STRENGTHENING PROGRAM WELL HER STDG BLE STRENGTHENING PROGRAM WITH FOCUS ON SUSTAINED MUSCLE CONTRACTION OF HER TRANSVERSE ABDOMINIS AND LATERAL HIP. SHE IS APPROPRIATE FOR CONTINUED SKILLED PHYSICAL THERAPY TO ADDRESS THIS RECENT EXACERBATION WELL BLE/ CORE STRENGTHENING, GT, AND BALANCE TRAINING. PATIENT VERBALIZED UNDERSTANDING TO ALL SKILLED INSTRUCTION AND AGREEABLE TO POC AND FREQ. Rehabilitation Potential GOOD Continued Plan of Care and Interventions BLE/CORE STRENGTHENING GT ON A VARIETY OF SURFACES BALANCE TRAINING ENDURANCE TRAINING Provider Signature Shows Agreement With POC & Medical Necessity Discharge Note Discharge Summary PATIENT IS A [address] MAIKEL MADDEN REFERRED TO PHYSICAL THERAPY FOLLOWING AN ACUTE BOUT OF BACK AND HIP/ GLUTEAL PAIN. 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 MS PARKER HAS PARTICIPATED IN A COMPREHENSIVE AND INDIVIDUALIZED PROGRAM TO INITIALLY ADDRESS HER ACUTE SYMPTOMS AND ALLOW HER TO RETURN TO HER TO SIT FOR AT LEAST 30MIN SO THAT SHE COULD PARTICIPATE IN FAMILY CENTERED ACTIVITIES THAT REQUIRED TRAVEL. SHE HAD PROGRESSED TO A POINT WHERE HER SYMPTOMS WERE CONTROLLED AND INDEPENDENT WITH HER HEP BOTH ON LAND AND IN THE POOL. 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 SHE NOW HAS MET HER GOALS AND IS READY FOR DISCHARGE FROM [facility] PHYSICAL THERAPY. SHE IS INDEPENDENT WITH HER HEP AND IN AGREEMENT WITH DISCHARGE TODAY. Interventions Provided During Treatment Gait Training,Joint Mobilization,Manual Therapy, Neuromuscular Re-Ed, Therapeutic Activities, Therapeutic Exercise Recommendations/Reason for Discharge Met All Therapy Goals Discharge Instructions CONTINUE WITH HER HEP AND F/U WITH YOUR PHYSICIAN NEEDED.
== END 2023-03-10 15:18 | disposition home or self-care (01) ==
PROVIDERS: PCP Family Medicine; Visit Provider Family Medicine
DX: M54.50 Low back pain, unspecified (principal); Z51.89 Encounter for other specified aftercare
CPT/HCPCS: 97110; 97116; 97140; 97162; 97164

== ENCOUNTER 2023-03-15 09:13 | Outpatient (CLI) | payer MEDICARE, SELFPAY | END 2023-03-15 09:14 | disposition home or self-care (01) | LOC: NFLDREF 18:33 | PROVIDERS: PCP Family Medicine; Referring Provider Family Medicine; Visit Provider Nurse Practitioner Family | DX: R30.0 Dysuria (principal); N30.90 Cystitis, unspecified without hematuria; I10 Essential (primary) hypertension | CPT/HCPCS: 87086 ==

== ENCOUNTER 2023-06-11 08:15 | Outpatient (CLI) | payer MEDICARE, SELFPAY | END 2023-06-11 08:16 | disposition home or self-care (01) | LOC: LONREF 08:16 | PROVIDERS: PCP Family Medicine; Visit Provider Family Medicine | DX: Z00.00 Encounter for general adult medical examination without abnormal findings (principal); I10 Essential (primary) hypertension; E78.5 Hyperlipidemia, unspecified | CPT/HCPCS: 80048 ==

== ENCOUNTER 2023-08-27 14:11 | Outpatient (CLI) | payer MEDICARE, SELFPAY ==
--- NOTE | 2023-08-27 14:30 | CRLHL7_ITS ---
For Patients: As a result of the 21st Century Cures Act, medical imaging exams and procedure reports are released immediately into your electronic medical record. You may view this report before your referring provider. If you have questions, please contact your health care provider. HISTORY: Weakness with abduction and external rotation. TECHNIQUE: Noncontrast MRI of the left shoulder. COMPARISON: Radiographs 08/15/2023. FINDINGS: Rotator Cuff: Full-thickness distal supraspinatus and infraspinatus tendon tearing with combined area of tearing measuring approximately 4.5 cm anterior/posterior by 5.5 cm medial/lateral extent. There is severe supraspinatus and infraspinatus muscle atrophy. The distal teres minor tendon is intact. Teres minor muscle mass is maintained. Full-thickness subscapularis tendon tearing with mild muscle atrophy. AC joint and coracoacromial arch: AC joint degenerative arthrosis with periarticular bone marrow edema. There is an AC joint effusion. Coracoclavicular ligament is intact. Type 2 acromial morphology. There is some attenuation of the anterolateral acromion. The acromiohumeral interval is narrowed by superior subluxation of the humeral head. Subacromial - subdeltoid bursal fluid is nonspecific in the setting of full-thickness rotator cuff tendon tearing. Subcoracoid bursal fluid is nonspecific in the setting of full-thickness rotator cuff tendon tearing. Biceps-labral complex: Long head of biceps tendon is medially dislocated bicipital groove compatible with disruption of the biceps presley mechanism. There is tendinosis and partial tearing of the long head biceps tendon. Multifocal degenerative glenoid labral tearing is present. Glenohumeral joint: Small to moderate effusion with synovitis. High-grade humeral head cartilage wear superiorly (grade 3). There is cystic-like change involving the superior glenoid which may relate to reactive or degenerative subchondral cystic change. Bones and soft tissues: There is no acute fracture. No avascular necrosis. No abnormality within the suprascapular or spinoglenoid notches nor within the quadrilateral space. IMPRESSION: 1. Full-thickness supraspinatus and infraspinatus tendon tearing with severe muscle atrophy. 2. Full-thickness distal subscapularis tendons tearing superiorly with mild muscle atrophy. 3. Disrupted biceps presley mechanism with medial dislocation of the long head of the biceps tendon. 4. Glenohumeral and AC joint degenerative changes. Dictated by Micky Nash MD @ 08/28/2023 9:25:52 AM (Electronically Signed)
== END 2023-08-27 14:12 | disposition home or self-care (01) ==
LOC: MRI 14:12
PROVIDERS: PCP Family Medicine; Visit Provider Family Medicine
DX: M25.512 Pain in left shoulder (principal); M75.102 Unspecified rotator cuff tear or rupture of left shoulder, not specified as traumatic; M19.012 Primary osteoarthritis, left shoulder; R29.898 Other symptoms and signs involving the musculoskeletal system
CPT/HCPCS: 73221

== ENCOUNTER 2023-09-16 08:30 | Outpatient (RCR) | payer MEDICARE, SELFPAY ==
--- NOTE | 2023-08-26 12:50 | PT.OPEX ---
PT [place] Outpatient Eval PT [facility] Outpatient Eval Start: 08/26/23 08:33 Freq: Status: Active Protocol: Document 08/26/23 08:33 AUDREY (Rec: 08/26/23 12:46 AUDREY [id number]) E-signed By Fern Brunson PT Physical Therapy Outpatient Evaluation Insurance Information Recert Due Date 11/23/23 Insurance Name Medicare B,Blue Cross/Blue Shield Medical Diagnosis LEFT SHOULDER PAIN M25.512 Referring MD MAIKEL MADDEN Subjective Subjective PATIENT IS HERE FOR HER LEFT SHOULDER DESCRIBING A WEIRD MVMT WHILE A PASSENGER IN THE CARE. I DON'T KNOW WHAT I DID BUT I MOVED IN SUCH AWAY THAT IT COMPLETELY DRAINED ME D/T THE PAIN. SHE HAS HAD RIGHT SHOULDER ISSUES IN THE PAST AND WILL HAVE AN MRI TOMORROW ON HER LEFT. SHE WOULD LIKE TO GET HER PAIN UNDER CONTROL AND PREPARE FOR HER TRIP TO [place] FOR THE WINTER IN A COUPLE OF WEEKS. 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 Preferred Name [employer] Precautions Therapy Limitations/Systems Review Hearing Objective Other/Pertinent Objective SHOULDER AROM Flexion: R WNL L 112 Abduction: R WNL L 78 Internal Rotation: R T5 L L2 External Rotation: R/L WNL NECK/SHOULDER MMT: Deep neck flexor endurance test: Shoulder shrug: R 5/5 L 5/5 Shoulder flexion: R 5/5 L 3/5 Shoulder abduction: R 5/5 L 3/ 5 Shoulder External Rotation: R 5/5 L 3+/5 Shoulder Internal Rotation: R 5/5 L 4-/5 Elbow flexion: R 5/5 L 3+/5 Elbow extension R 5/5 L 4/5 SPECIAL TEST Shoulder impingement HawWale Test: (+) Neer Test: (+) David Test(subacromial) : (-) Painful arc 60-120 scaption: ( +) Rotator cuff tendonitis Speeds test(biceps): (+) Swethas test(biceps-arm at side elbow flexed resist supination): (+) *Empty can/Jobes (Supra): (+) *full can: (+) Lift off test (subscap): (-) *horn blower (90-90 resistance t. minor and infra) drop arm test: (_) JOINT MOBILITY/PALPATION: PAIN ABOUT BICIPITAL GROOVE, MIN GHJ HYPOMOBILITY TX: ULTRASOUND 3.3 [facility] X 6 MIN 1. 4 W/CM2 LEFT ANTERIOR SHOULDER DTM TO SAME IADTM TO SAME CUPPING TO ANTERIOR SHOULDER, PROXIMAL BICEPS MM BELLY, LATERAL DELT X 2.5MIN TABLE SLIDES X 10 HOLD 5 SEC SHOULDER SHRUG W/BKWD ALUTIIQ SCAP SQUEEZE TB (GREEN) ROW X 15 HOLD 3 SEC TB (GREEN) S'EXT X 15 HOLD 3 SEC Assessment Assessment/Impression PATIENT IS AN [address] MADDEN FOR LEFT SHOULDER PAIN. PMHX INCLUDES BUT NOT LIMITED TO H/O BACK AND HIP PAIN, SPONDYLOLISTHESIS, SPINAL STENOSIS, LUMBAR DDD (L2-L5), MULTILEVEL FACET ARTHROPATHY, PROGRESSIVE ROTATORY LUMBAR SCOLIOTIC CURVATURE TO THE LEFT, H/O TKA, HLD, GLAUCOMA, [place] W/HEARING AIDES, DIVERTICULOSIS, OCCIPITAL NEURALGIA, H/O 5TH METATARSAL FX, NO H/O FALLS. SHE DEMONSTRATES POINT TENDERNESS ABOUT THE PROXIMAL BICEPS TENDON NOTING A POSITIVE SPEEDS TEST, IMPINGEMENT WELL ASSOCIATED WEAKNESS. SHE HAS NORMAL PROM BILATERALLY AND RIGHT AROM WNL NOTING PAINFUL ARC WITH HER LEFT. SHE WILL BE LEAVING FOR AN EXTENDED PERIOD OF TIME TO [place] AND WOULD LIKE TO BE ABLE TO PERFORM HER POOL WORKOUTS WELL REGAIN USE OF HER LUE FOR NORMAL ADL'S. SHE IS APPROPRIATE FOR SKILLED PHYSICAL THERAPY TO MANAGE HER SYMPTOMS OF PAIN AND INFLAMMATION WELL RTC/ SCAPULAR STRENGTHENING AND STABILIZATION PROGRAM. PATIENT IN AGREEMENT WITH POC AND FREQ. Primary Functional Limitations REACHING PAIN ADL'S Plan of Care Rehabilitation Potential Good Physical Therapy Goals IN 8-12 WEEKS: 1. DECREASE SHOULDER PAIN TO < /2-3/10 WITH DAILY ACTIVITIES AND WITH THE PROGRESSION OF HER HEP OVER THE NEXT 4 WEEKS. 2. DEMONSTRATE PAIN FREE AROM OVER THE NEXT 4-6 WEEKS DURING DAILY ACTIVITIES WITHOUT FLARE UPS OF SYMPTOMS. 3. PATIENT WILL VERBALIZED UNDERSTANDING OF POSTURING AND BODY MECHANICS IT RELATES TO DECREASING STRESS, IMPROVED SHOULDER MECHANICS, AND DECREASED SYMPTOMS. 4.PATIENT WILL DEMONSTRATES IMPROVED STRENGTH TO FACILITATE RETURN TO DAILY ACTIVITIES WITH LESS SYMPTOMS AND DECREASED OPPORTUNITIES FOR FLARE UP OF PAIN 5. PATIENT WILL BE INDEPENDENT WITH HER HEP WITHIN THE NEXT 6-8 WEEKS FOR PROGRESSION TWD ABOVE MENTION GOALS, CONTINUED MGMT OF SYMPTOMS, AND ONGOING SELF IMPROVEMENTS IN POSTURING/STRENGTH/ STABILIZATION. Coordination/Communication With Referral Source Treatment Plan/Direct Interventions Ice/Cold/Vasopneumatic,Joint Mobilization,Manual Therapy, Neuromuscular Re-ed, Therapeutic Activities, Therapeutic Exercises Frequency/Duration 1-2X/WK FOR 8-12 WKS Patient Will Be Discharged From Therapy Completion of LTG(s), Independently Progressing Evaluation Billing PT Eval No Charge No Complexity Moderate Certification Information Initial Certification Date 08/26/23 Ending Certification Date 11/23/23 Provider Signature Shows Agreement With POC & Medical Necessity Physician Signature & Date Requested Please Sign/Date Here Physician Comment/Change : Physician NPI Number #
== END 2023-10-21 10:10 | disposition home or self-care (01) ==
PROVIDERS: PCP Family Medicine; Visit Provider Family Medicine
DX: M25.512 Pain in left shoulder (principal); Z51.89 Encounter for other specified aftercare
CPT/HCPCS: 97035; 97110; 97140; 97162

== ENCOUNTER 2024-04-15 14:26 | Outpatient (CLI) | payer MEDICARE, SELFPAY | END 2024-04-15 14:27 | disposition home or self-care (01) | LOC: NFLDREF 04-20 09:48 | PROVIDERS: PCP Family Medicine; Referring Provider Family Medicine; Visit Provider Family Medicine | DX: R82.90 Unspecified abnormal findings in urine (principal) | CPT/HCPCS: 87086 ==

== ENCOUNTER 2024-06-28 13:45 | Outpatient (RCR) | payer MEDICARE, SELFPAY ==
--- NOTE | 2024-05-14 07:39 | PT.OPEX ---
PT [place] Outpatient Eval PT [facility] Outpatient Eval Start: 05/12/24 13:10 Freq: Status: Active Protocol: Document 05/12/24 17:12 AUDREY (Rec: 05/12/24 17:35 AUDREY [id number]) E-signed By Fern Brunson PT Physical Therapy Outpatient Evaluation Insurance Information Recert Due Date 08/09/24 Insurance Name Medicare B Medical Diagnosis BACK PAIN Treating Diagnosis BACK PAIN WEAKNESS UNSTEADY GAIT Imaging Report Information XRAY: Levo scoliotic deformity. Multilevel degenerative facet arthropathy throughout the mid and lower lumbar spine. Degenerative anterolisthesis at several levels. Dense calcifications in the aorta. Degenerative disc disease L3-4 and L2-3. No fracture. Referring MD EVA MORILLO Subjective Preferred Name ESTEBAN Subjective PATIENT DESCRIBES AN ACUTE FLARE UP FOLLOWING DRIVING TO [place] FOLLOWED BY DRIVING TO [place] WITH LITTLE OPPORTUNITY TO STRETCH OR MOVE IN GENERAL. SHE REPORTS, I HADN'T DONE MY EXERCISES AT THAT POINT SO I DID THEM REALLY GOOD AND WOKE UP THE NEXT MORNING IN EXTREME PAIN. I COULDN'T FIND ANY POSITION THAT I COULD TOLERATE. SHE WENT URGENT CARE AND WAS PRESCRIBED 10DAY PREDNISONE BUT, HER PAIN WAS NOT ANY BETTER, AND RETURN TO URGENT CARE 2 DAYS LATER AND WAS PRESCRIBED HYDROCODONE. THE PAIN MED HELPED TREMENDOUSLY ALONG WITH THE TYLENOL TID AND TRAMADOL 1.5TAB BID. SHE THEN WAS ABLE TO SEE HER PCP AND SENT TO PHYSICAL THERAPY. THIS ALL TOOK PLACE ~1MO AGO AND REPORTS 3-4/10 PAIN ABOUT THE FLANK OF HER BACK R>L. SHE ALSO STATES THAT SHE IS MOVING NOV AND HAS BEEN PACKING FOR THE LAST MONTH BUT HAS NOT BEEN GETTING HER CONSISTENT WALKING NOR HEP THAT SHE HAS PREVIOUSLY PERFORMED. LASTLY, SHE TRIPPED OVER A RUG THAT HAD BEEN MOVED YESTERDAY BUT STATES, IT DIDN'T MAKE MY BACK ANY WORSE. SHE IS HERE TO ADDRESS HER RECENT EXACERBATION, IMPROVE STRENGTH AND BALANCE. 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 MORILLO TO EVAL AND TX BACK PAIN; PATIENT HAS SIGNIFICANT PMHX (LISTED ABOVE ) FOR SPINE DYSFUNCTION AND HAS SEVERAL BOUTS OF PHYSICAL THERAPY. TODAY SHE PRESENTS WITH MUCH IMPROVED PAIN COMPARED TO HER INITIAL FLAREUP LOCATED R>L HIP AND LUMBAR PAIN WITH C/O BLE WEAKNESS AND UNSTEADINESS. FUNCTIONAL STRENGTH AND BALANCE EXAMS REVEALED A MOD RISK FOR FALL BUT FUNCTIONAL STRONG COMPARED TO HER PEER NORMS. SHE HAS LIMITED HER DAILY EXERCISE AND UNCLEAR WHICH TO RESUME WELL ACTIVELY PACKING HER HOME TO MOVE TO AN INDEPENDENT LIVING SCENARIO ON Jun. ESTEBAN DEMONSTRATES SIGNS AND SYMPTOMS CONSISTENT WITH HER DX OF XRAY RESULTS AND WOULD BENEFIT FROM SKILLED PHYSICAL THERAPY TO ADDESS HER SYMPTOM MGMT, BLE/CORE STRENGTHENING/ STABILITY, STATIC AND DYNAMIC BALANCE TRAINING. PATIENT VERBALIZED UNDERSTANDING TO ALL SKILLED INSTRUCTION PROVIDED TODAY AND AGREEABLE TO THE POC AND FREQ. Primary Functional Limitations PROLONGED SITTING/STDG WALKING COMMUNITY DISTANCES BENDING STOOPING SQUATING Plan of Care Rehabilitation Potential Good Physical Therapy Goals STG (4-6 WEEKS): 1. PATIENT WILL REPORT PAIN </ 3/10 DURING DAILY ACTIVITIES AND WITH DAILY PARTICIPATION WITH HIS/HER HEP 2. PATIENT WILL REPORT THE ABILITY TO STAND >10 MIN TO ENABLE COOKING, GROOMING, AND OTHER IADL'S 3. PATIENT WILL VERBALIZE A GOOD UNDERSTANDING OF BODY MECHANICS DURING HIS/HER DAILY ACTIVITIES ALONG WITH PROPER LIFTING TECHNIQUES FOR GOOD BACK CARE AND WITH SYMPTOM MGMT. LTG (8 WEEKS): 1. PATIENT WILL IMPROVE NOT ONLY FLEXIBILITY BUT BOTH CORE STRENGTH AND STABILITY TO IMPROVE POSTURING DURING DAILY ACTIVITIES INCLUDING IADL'S AND PEER CENTERED ACTIVITIES. 2. PATIENT WILL VERBALIZE GOOD UNDERSTANDING OF CORE STABILITY TO MAINTAIN AND FURTHER PROGRESS HIS FUNCTIONAL MOBILITY AND TOLERANCE TO PROLONGED POSITIONING. 3. PATIENT WILL DEMONSTRATE COMPLETE INDEPENDENCE AND THE ABILITY TO PROGRESS HIS/HER HEP FOR MAINTENANCE AND CONTINUED IMPROVEMENT OF HIS CORE / BLE STRENGTH AND STABILITY. Coordination/Communication With Referral Source Treatment Plan/Direct Interventions Electrical Stimulation,Gait Training,Heat,Ice/Cold/ Vasopneumatic,Joint Mobilization,Manual Therapy, Neuromuscular Re-ed,Self-Care/ Home Management,Therapeutic Activities,Therapeutic Exercises Frequency/Duration 1-2X/WK Patient Will Be Discharged From Therapy Completion of LTG(s), Independent w/HEP Evaluation Billing Untimed Code Treatment Minutes 20 PT Eval No Charge No Complexity Moderate Certification Information Initial Certification Date 05/12/24 Ending Certification Date 08/09/24 Provider Signature Required Yes Provider Signature Shows Agreement With POC & Medical Necessity Physician NPI Number Write NPI# Here Physician Comment/Change : Physician Signature & Date Requested Please Sign/Date Here
== END 2024-07-06 11:54 | disposition home or self-care (01) ==
PROVIDERS: PCP Family Medicine; Visit Provider Family Medicine
DX: M54.9 Dorsalgia, unspecified (principal); R26.89 Other abnormalities of gait and mobility; Z51.89 Encounter for other specified aftercare
CPT/HCPCS: 97110; 97162

== ENCOUNTER 2024-07-06 11:14 | Outpatient (CLI) | payer MEDICARE, SELFPAY | END 2024-07-06 11:15 | disposition home or self-care (01) | LOC: LKVREF 11:15 | PROVIDERS: PCP Family Medicine; Visit Provider Family Medicine | DX: I10 Essential (primary) hypertension (principal) | CPT/HCPCS: 80048 ==

== ENCOUNTER 2024-07-14 07:45 | Outpatient (CLI) | payer MEDICARE, SELFPAY | END 2024-07-14 07:46 | disposition home or self-care (01) | LOC: RAD 07:46 | PROVIDERS: PCP Family Medicine; Visit Provider Family Medicine | DX: I48.91 Unspecified atrial fibrillation (principal); I51.7 Cardiomegaly; I35.1 Nonrheumatic aortic (valve) insufficiency; I34.0 Nonrheumatic mitral (valve) insufficiency; I07.1 Rheumatic tricuspid insufficiency; I27.20 Pulmonary hypertension, unspecified | CPT/HCPCS: 93306 ==

== ENCOUNTER 2024-08-17 10:18 | Outpatient (CLI) | payer MEDICARE, SELFPAY | END 2024-08-17 10:19 | disposition home or self-care (01) | PROVIDERS: PCP Family Medicine; Visit Provider Family Medicine | DX: R63.4 Abnormal weight loss (principal); Z13.29 Encounter for screening for other suspected endocrine disorder | CPT/HCPCS: 80076; 84439; 84443 ==

== ENCOUNTER 2024-09-06 12:33 | Outpatient (CLI) | payer MEDICARE, SELFPAY | END 2024-09-06 12:34 | disposition home or self-care (01) | LOC: RAD 12:34 | PROVIDERS: PCP Family Medicine; Visit Provider Internal Medicine Cardiovascular Disease | DX: I48.91 Unspecified atrial fibrillation (principal); I51.7 Cardiomegaly; I35.1 Nonrheumatic aortic (valve) insufficiency; I34.0 Nonrheumatic mitral (valve) insufficiency; I07.1 Rheumatic tricuspid insufficiency; I31.39 Other pericardial effusion (noninflammatory) | CPT/HCPCS: 93306 ==

== ENCOUNTER 2025-02-08 06:36 | Outpatient (CLI) | payer MEDICARE, SELFPAY ==
--- NOTE | 2025-02-08 08:14 | W.ANESCHARGE ---
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
--- NOTE | 2025-02-08 08:24 | P.ANES_ITS ---
Anesthesia Charges Start Date/Time Anesthesia Start Date: 02/08/25 Anesthesia Start Time: 07:21 Stop Date/Time Anesthesia Stop Date: 02/08/25 Anesthesia Stop Time: 08:09 Summary Extremes of Age - Over 70 or under 1: MDA Coding CPT Codes CPT Codes: ANES LWR INTST NDSC NOS - 79393 ([id number]) QK - THREE DIMENSIONAL MAP MODELER 2-4 CNCRNT ANES PROC, QX - HIGH LIFT OPERATOR SVC W/ MD MED DIRECTION, P3 - PATIENT W/SEVERE SYS DISEASE Additional Codes: Summary - Extremes of Age - Over 70 or under 1: MDA ([id number])
--- OUTSIDE RECORDS SUMMARY | 2025-02-08 08:32 | XMS_ITS | Clinical Summary ---
Author Organization [facility] Address [facility] [place] [address] Care Team Providers Care Dramatic Arts Historian Name Role Phone Armani Winn MD Primary Care Provider [phone] Allergies Active Allergy Reactions Criticality Noted Date Comments Nsaids (Non-Steroidal Anti-I nflammatory Drug) *Unknown 10/07/2017 Medications apixaban (Eliquis) 5 mg tabletIndication s:Persistent atrial fibrillation (HC) Take 1 Tablet (5 mg) by mouth two times daily. 4 Active metoprolol succinate (Toprol XL) 100 mg Sustained-Releas e tabletIndication s:Persistent atrial fibrillation (HC) Take 0.5 Tablets (50 mg) by mouth two times daily. 120 Tablet 5 4 Active Healon 0.001% ophthalmic solution Place 1 Drop into both eyes 4-6 times a day. Discard bottle 3 days after opening. Refrigerate. Unopened bottles : . 20 mL 5 5 Active Healon 0.001% ophthalmic solution Place 1 drop into both eyes four to six times daily. Discard bottle 3 days after opening. Refrigerate. Unopened bottles : . 20 mL 5 01/10/2025 9:47 AM CDT 4 01/18/20 25 Discontinu ed(Reorder (E-cancel not sent)) Encounters Date Type Department Care Team Description 11/25/2024 10:30 AM CDT Office Visit [facility] [address] [place] [address] Laura Lee MD 11/25/[address] [address] Laura Lee MD Follow Up from Last 3 Months Social History Tobacco Use Types Packs/Day Years Used Date Smoking Tobacco: Former Cigarettes Smokeless Tobacco: Never Tobacco Cessation:Counseling Given: Not Answered Interpersonal Safety Answer Date Record ed Are you being hit, kicked, p ushed or yelled at (see row info)? 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 Gender Identity Not on file Sexual Orientation Not on file Obstetrics History Last Filed Vital Signs Vital Sign Reading Time Taken Comments Blood Pressure 138/76 11/25/2024 11:43 AM CDT Pulse 72 11/25/2024 11:43 AM CDT Temperature 36.6 C (97.8 F) 08/06/2024 1:45 PM FOOD AND NUTRITION SERVICES ASSISTANT Respiratory Rate 21 08/06/2024 1:45 PM FOOD AND NUTRITION SERVICES ASSISTANT Oxygen Saturation 96% 11/25/2024 11:43 AM CDT Inhaled Oxygen Concentration - - Weight 67.8 kg (149 lb 6.4 oz) 11/25/2024 11:43 AM CDT Height 157.5 cm (5' 2) 11/25/2024 11:43 AM CDT Body Mass Index 27.33 11/25/2024 11:43 AM CDT Plan of Treatment Health Maintenance Due Date Last Done Comments (IA) Tdap 1954 Depression screening for age 12+ 1955 Pneumococcal series for age 50+ (1 of 2 - PCV) 1962 Tetanus booster 1963 Zoster (shingles) series for age 50+ (1 of 2) 1993 DEXA/DXA scan for age 65+ 2008 Medicare Wellness for age 65+ 2008 RSV vaccine for adults or (1 - 1-dose 75+ series) 2018 COVID-19 vaccine series ( season) 2024 01/22/2022, 06/22/2021, 10/13/2020, Additional history exists Influenza Vaccine (#1) 2025 BMI (ht and wt on same day) for age 18+ 11/25/2025 11/25/2024 Hepatitis B series for 19+ Aged Out N o longer eligible based on patient's age to complete this topic Insurance BLUE CROSS MEDICARE ADVANTAGE MR MEDICARE PART A HB ONLY Advance Directives * Full Code (Latest Code Status on File) Date Activated Date Inactivated Comments 08/06/2024 2:26 PM 08/06/2024 5:19 PM Question Answer Comments Code Status Discussion: Other Care Teams Dramatic Arts Historian Relationship Specialty Start Date End Date Armani Winn MD [address] [place] [address] PCP - General Family Practice 07/14/24
--- OUTSIDE RECORDS SUMMARY | 2025-02-09 00:38 | XMS_ITS | Clinical Summary ---
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
== END 2025-02-08 06:37 | disposition home or self-care (01) ==
PROVIDERS: PCP Family Medicine; Visit Provider Surgery
DX: Z12.11 Encounter for screening for malignant neoplasm of colon (principal); Z86.0100 Personal history of colon polyps, unspecified; D12.2 Benign neoplasm of ascending colon; K57.30 Diverticulosis of large intestine without perforation or abscess without bleeding
CPT/HCPCS: 00811; 45385; 99100; J2704

== ENCOUNTER 2025-07-20 14:19 | Outpatient (CLI) | payer MEDICARE, SELFPAY ==
--- NOTE | 2025-07-20 14:45 | CRLHL7_ITS ---
For Patients: As a result of the Century Cures Act, medical imaging exams and procedure reports are released immediately into your electronic medical record. You may view this report before your referring provider. If you have questions, please contact your health care provider. INDICATION: Postmenopausal bleeding COMPARISON: 04/22/2011 TECHNIQUE: 2D rodgers-scale and color Doppler images were acquired of the pelvis using a transabdominal and transvaginal approach. Transvaginal imaging performed to better visualize the endometrial stripe and ovaries. FINDINGS: Multiple myometrial calcifications again noted. Right fundal fibroid measures 3.6 x 3.9 x 3.6 cm. Left-sided lower uterine segment fibroid measures 6.5 x 4.6 x 6.7 cm. Uterus measures 10.0 cm in length by 4.4 cm in AP diameter by 7.0 cm in transverse dimension. The endometrium is obscured by the heterogeneous uterine echotexture and fibroids. The right ovary is not visualized due to bowel gas and the left ovary measures 2.5 x 0.9 x 1.2 cm. The left ovary demonstrates normal arterial and venous blood flow on color Doppler analysis. There are no suspicious fluid collections within the cul-de-sac. IMPRESSION: Right-sided fibroid measures 3.9 cm. Left-sided fibroid measures 6.7 cm. Endometrium is obscured. Dictated by Rogelio Kulkarni MD @ 07/21/2025 6:46:06 AM (Electronically Signed)
== END 2025-07-20 14:20 | disposition home or self-care (01) ==
LOC: US 14:20
PROVIDERS: PCP Family Medicine; Visit Provider Family Medicine
DX: N95.0 Postmenopausal bleeding (principal); D25.9 Leiomyoma of uterus, unspecified
CPT/HCPCS: 76830; 76856